=== PATIENT | female | born 1990 | race African-American/Black ===

== ENCOUNTER 2024-05-02 11:05 | Emergency (ER) | payer OTHER ==
[~2024-05-02] VITALS: Ht 172.7 cm; Wt 90.7 kg
[2024-05-02 11:35] VITALS: O2SAT 100
[2024-05-02 12:01] LABS: BASOPHILS % 0.2 % (0.0-2.0); EOSINOPHILS % 0.1 % (0.0-5.0); HEMATOCRIT. 39.8 % (36.0-48.0); HEMOGLOBIN. 13.4 g/dL (12.0-16.0); LYMPHOCYTES % 11.1 % (20.0-50.0); MEAN CORPUSCULAR HEMOGLOBIN 30.4 pg (28.0-32.0); MEAN CORPUSCULAR HGB CONC 33.7 g/dL (31.0-37.0); MEAN CORPUSCULAR VOLUME 90.1 fL (81.0-99.0); MONOCYTES % 2.4 % (2.0-8.0); NEUTROPHILS % 86.2 % (40.0-76.0); PLATELET 352 x1000/uL (130-400); RED BLOOD CELL COUNT 4.42 mill/uL (4.2-5.4); RED CELL DISTRIBUTION WIDTH 12.8 % (11.6-14.6); WHITE BLOOD COUNT 12.3 x1000/uL (4.5-11.0)
[2024-05-02 12:15] LABS: CHLORIDE 109 mEq/L (98-107); POTASSIUM 3.5 mEq/L (3.5-5.1); SODIUM 139 mEq/L (136-145)
[2024-05-02 12:16] LABS: CALCIUM 9.7 mg/dL (8.7-10.4); CARBON DIOXIDE 18 mEq/L (21-32)
[2024-05-02 12:21] LABS: GLUCOSE 115 mg/dL (70-105); UREA NITROGEN BLOOD 10 mg/dL (9-23)
[2024-05-02 12:23] LABS: ALANINE AMINOTRANSFERASE 25 IU/L (10-49); ALBUMIN 4.7 g/dL (3.2-4.8); ASPARTATE AMINOTRANSFERASE 27 IU/L (<34); BILIRUBIN DIRECT 0.2 mg/dL (<=3.0); BILIRUBIN TOTAL 0.8 mg/dL (0.1-1.0)
[2024-05-02 12:24] LABS: PROTEIN TOTAL 8.3 g/dL (6.0-8.3)
[2024-05-02] MEDS: SODIUM CHLORIDE 0.9% 1,000 ML IV ONE (12:30)
[2024-05-02] MEDS: ONDANSETRON HCL 4MG/2ML INJ IV STA (12:30)
[2024-05-02] MEDS: MORPHINE SULFATE 4 MG/ML INJ (FOR IV/IM USE) IV ONE (13:44)
[2024-05-02 13:51] LABS: CLARITY URINE CLEAR (CLEAR); COLOR URINE YELLOW (YELLOW); GLUCOSE URINE NEGATIVE (NEGATIVE); KETONES URINE 2+ (NEGATIVE); LEUKOCYTE ESTERASE URINE NEGATIVE (NEGATIVE); NITRITE URINE NEGATIVE (NEGATIVE); OCCULT BLOOD URINE NEGATIVE (NEGATIVE); PH URINE >=9.0 (4.5-8.0); PROTEIN URINE TRACE (NEGATIVE); SPECIFIC GRAVITY URINE 1.019 (1.005-1.030); UROBILINOGEN URINE 0.2 E.U./dL (0.2-1.0)
[2024-05-02 13:52] LABS: HCG SCREEN NEGATIVE
[2024-05-02 14:01] VITALS: BP 105/61; PULSE 106; RESP 18; TEMP 37.3; O2SAT 100
[2024-05-02 14:03] LABS: BACTERIA URINE 4+; RBC URINE 0-2 /hpf (0-2); SQUAMOUS EPITHELIAL CELL URINE 3+ /lpf (RARE/1+); YEAST URINE NONE SEEN
[2024-05-02] MEDS: MAGNESIUM/ALUMINUM HYDROXIDE/SIMETHICONE 30ML UDC PO ONE (14:49)
[2024-05-02] MEDS ORDERED: TOPUD MT (16:23)
[2024-05-02] MEDS ORDERED: ONDA4TAB50 MT (16:23)
[2024-05-02] MEDS ORDERED: PANT40SU MT (16:23)
[2024-05-02] MEDS ORDERED: MAG-55 MT (16:23)
== END 2024-05-02 16:55 | disposition home or self-care (01) ==
LOC: ER 11:05
DX: K52.9 Noninfective gastroenteritis and colitis, unspecified (principal); Z90.89 Acquired absence of other organs
CPT/HCPCS: 99285; 74176; 96374; 96361; 96375; 80076; 80048; 81003; 81025; 84703; 83690; 85025; 36415; J2405; J2270; J7030

== ENCOUNTER 2024-05-04 03:32 | Inpatient (IN) | payer OTHER ==
[~2024-05-04] VITALS: Ht 172.7 cm; Wt 99.3 kg
[~2024-05-04 03:32] MED LIST: MAG-55 MT; ONDA4TAB50 MT; PANT40SU MT; TOPUD MT
[2024-05-04 04:13] LABS: BASOPHILS % 0.5 % (0.0-2.0); EOSINOPHILS % 0.1 % (0.0-5.0); HEMATOCRIT. 41.2 % (36.0-48.0); HEMOGLOBIN. 14.4 g/dL (12.0-16.0); MEAN CORPUSCULAR HEMOGLOBIN 31.2 pg (28.0-32.0); MEAN CORPUSCULAR VOLUME 89.2 fL (81.0-99.0); MEAN PLATELET VOLUME 6.9 fl (7.4-10.4); NEUTROPHILS % 76.4 % (40.0-76.0); PLATELET 395 x1000/uL (130-400); RED BLOOD CELL COUNT 4.62 mill/uL (4.2-5.4); RED CELL DISTRIBUTION WIDTH 13.3 % (11.6-14.6); WHITE BLOOD COUNT 12.4 x1000/uL (4.5-11.0)
[2024-05-04 04:22] LABS: CHLORIDE 105 mEq/L (98-107); POTASSIUM 3.2 mEq/L (3.5-5.1); SODIUM 139 mEq/L (136-145)
[2024-05-04 04:23] LABS: CARBON DIOXIDE 19 mEq/L (21-32)
[2024-05-04 04:28] LABS: GLUCOSE 110 mg/dL (70-105); UREA NITROGEN BLOOD 11 mg/dL (9-23)
[2024-05-04 04:29] LABS: CLARITY URINE TURBID (CLEAR); COLOR URINE DARK YELLOW (YELLOW); GLUCOSE URINE NEGATIVE (NEGATIVE); KETONES URINE 3+ (NEGATIVE); LEUKOCYTE ESTERASE URINE TRACE (NEGATIVE); NITRITE URINE NEGATIVE (NEGATIVE); OCCULT BLOOD URINE TRACE (NEGATIVE); PROTEIN URINE 2+ (NEGATIVE); SPECIFIC GRAVITY URINE 1.035 (1.005-1.030)
[2024-05-04] MEDS: ONDANSETRON HCL 4MG/2ML INJ IM ONE (05:12)
[2024-05-04 06:23] LABS: SQUAMOUS EPITHELIAL CELL URINE 3+ /lpf (RARE/1+)
[2024-05-04 06:25] LABS: BACTERIA URINE TRACE; RBC URINE 0-2 /hpf (0-2)
[2024-05-04] MEDS: SODIUM CHLORIDE 0.9% 1,000 ML IV ONE (06:59)
[2024-05-04] MEDS: DICYCLOMINE HCL 10MG/ML 2ML VIAL IM ONE (07:20)
[2024-05-04] MEDS: KETOROLAC 30MG/ML VIAL IV ONE (08:37)
[2024-05-04] MEDS: FAMOTIDINE 20MG/2ML VIAL IV ONE (08:38)
[2024-05-04] MEDS: ONDANSETRON HCL 4MG/2ML INJ IV ONE (08:38)
[2024-05-04] MEDS ORDERED: SODIUM CHL 0.9% + KCL 20MEQ/L 1,000 ML IV SCH (10:30)
[2024-05-04] MEDS ORDERED: MAGNESIUM/ALUMINUM HYDROXIDE/SIMETHICONE 30ML UDC PO PRN (10:30)
[2024-05-04] MEDS ORDERED: ACETAMINOPHEN 325MG TABLET PO PRN (10:30)
[2024-05-04 10:55] LABS: THYROID STIMULATING HORMONE 0.91 uIU/mL (0.55-4.78)
[2024-05-04] MEDS: SODIUM CHL 0.9% + KCL 20MEQ/L 1,000 ML IV SCH (10:55)
[2024-05-04] MEDS: PANTOPRAZOLE SODIUM 40 MG/VIAL IV SCH (11:25)
[2024-05-04 12:00] VITALS: BP 129/93; PULSE 80; RESP 18; TEMP 36.2; O2SAT 100
[2024-05-04 15:16] VITALS: BP 132/92; PULSE 80; RESP 20; TEMP 37
[2024-05-04] MEDS: ONDANSETRON HCL 4MG/2ML INJ IV PRN (15:32)
[2024-05-04] MEDS: KETOROLAC 30MG/ML VIAL IV PRN (15:39)
[2024-05-04 16:00] VITALS: BP 118/82; PULSE 79; RESP 20; TEMP 36.4; O2SAT 100
[2024-05-04] MEDS: DICYCLOMINE HCL 10MG/ML 2ML VIAL IM NR (16:00)
[2024-05-04 20:00] VITALS: BP 143/90; PULSE 84; RESP 19; TEMP 35.4; O2SAT 100
[2024-05-05] VITALS: BP 141/84; PULSE 72; RESP 20; TEMP 37.2; O2SAT 100
[2024-05-05 07:27] LABS: CALCIUM 8.3 mg/dL (8.7-10.4); CARBON DIOXIDE 21 mEq/L (21-32); CHLORIDE 110 mEq/L (98-107); POTASSIUM 3.7 mEq/L (3.5-5.1); SODIUM 140 mEq/L (136-145)
[2024-05-05 07:32] LABS: CREATININE 0.8 mg/dL (0.6-1.0); GLUCOSE 88 mg/dL (70-105)
[2024-05-05 07:33] LABS: UREA NITROGEN BLOOD 9 mg/dL (9-23)
[2024-05-05 07:48] LABS: BASOPHILS % 0.2 % (0.0-2.0); EOSINOPHILS % 0.1 % (0.0-5.0); HEMATOCRIT. 38.6 % (36.0-48.0); HEMOGLOBIN. 13.1 g/dL (12.0-16.0); LYMPHOCYTES % 24.1 % (20.0-50.0); MEAN CORPUSCULAR HEMOGLOBIN 30.7 pg (28.0-32.0); MEAN CORPUSCULAR HGB CONC 33.9 g/dL (31.0-37.0); MEAN CORPUSCULAR VOLUME 90.6 fL (81.0-99.0); MEAN PLATELET VOLUME 7.1 fl (7.4-10.4); MONOCYTES % 6.8 % (2.0-8.0); NEUTROPHILS % 68.8 % (40.0-76.0); PLATELET 322 x1000/uL (130-400); RED BLOOD CELL COUNT 4.26 mill/uL (4.2-5.4); RED CELL DISTRIBUTION WIDTH 12.9 % (11.6-14.6); WHITE BLOOD COUNT 9.6 x1000/uL (4.5-11.0)
[2024-05-05 09:15] LABS: *AMPHETAMINES SCREEN URINE NEGATIVE (NEGATIVE); *BARBITURATES SCREEN URINE NEGATIVE (NEGATIVE); *BENZODIAZEPINES SCREEN URINE NEGATIVE (NEGATIVE); *COCAINE SCREEN URINE NEGATIVE (NEGATIVE); CANNABINOID URINE SCREEN NEGATIVE (NEGATIVE); ECSTASY MDMA SCREEN URINE NEGATIVE (NEGATIVE); METHADONE URINE SCREEN NEGATIVE (NEGATIVE); OPIATES URINE SCREEN NEGATIVE (NEGATIVE); PHENCYCLIDINE URINE SCREEN NEGATIVE (NEGATIVE)
[2024-05-05 12:00] VITALS: BP 129/90; PULSE 77; RESP 20; TEMP 36.4; O2SAT 98
[2024-05-05] MEDS: SUCRALFATE 1G TABLET PO SCH (12:58)
[2024-05-05 14:50] LABS: ALANINE AMINOTRANSFERASE 24 IU/L (10-49); ALBUMIN 3.9 g/dL (3.2-4.8); ASPARTATE AMINOTRANSFERASE 35 IU/L (<34); BILIRUBIN DIRECT 0.3 mg/dL (<=3.0); BILIRUBIN TOTAL 1.2 mg/dL (0.1-1.0); PROTEIN TOTAL 6.9 g/dL (6.0-8.3)
[2024-05-05 15:03] LABS: HEPATITIS B SURFACE ANTIGEN NEGATIVE (Negative)
[2024-05-05 15:23] LABS: HEPATITIS A AB IGM NEGATIVE (Negative)
[2024-05-05 15:24] LABS: HEPATITIS B CORE AB IGM NEGATIVE (Negative); HEPATITIS C AB NON REACTIVE (Neg) (Negative)
[2024-05-05 16:00] VITALS: BP 132/79; PULSE 87; RESP 18; TEMP 36.8; O2SAT 97
[2024-05-05 20:00] VITALS: BP 134/78; PULSE 85; RESP 19; TEMP 36.8; O2SAT 98
[2024-05-05] MEDS: POTASSIUM PHOSPHATE 20 MMOL in DEXT 5% WATER 250 ML IV NR (22:39)
[2024-05-06] VITALS: BP 129/68; PULSE 82; RESP 18; TEMP 37; O2SAT 98
[2024-05-06] MEDS: DIPHENHYDRAMINE 50MG/ML VIAL IV PRN (00:06)
[2024-05-06] MEDS: ACETAMINOPHEN 325MG TABLET PO PRN (00:06)
[2024-05-06] MEDS: POTASSIUM CHLORIDE IV SCH (03:00)
[2024-05-06] MEDS: SODIUM CHLORIDE 0.9% IV SCH (03:00)
[2024-05-06 04:00] VITALS: BP 122/67; PULSE 20; RESP 16; TEMP 36.8; O2SAT 97
[2024-05-06 07:15] LABS: CHLORIDE 106 mEq/L (98-107); POTASSIUM 3.6 mEq/L (3.5-5.1); SODIUM 137 mEq/L (136-145)
[2024-05-06 07:16] LABS: CALCIUM 8.6 mg/dL (8.7-10.4); CARBON DIOXIDE 20 mEq/L (21-32)
[2024-05-06 07:21] LABS: CREATININE 0.9 mg/dL (0.6-1.0); GLUCOSE 74 mg/dL (70-105)
[2024-05-06 07:22] LABS: ALANINE AMINOTRANSFERASE 25 IU/L (10-49); UREA NITROGEN BLOOD 7 mg/dL (9-23)
[2024-05-06 07:23] LABS: ALBUMIN 4.1 g/dL (3.2-4.8); ASPARTATE AMINOTRANSFERASE 30 IU/L (<34)
[2024-05-06 07:24] LABS: BILIRUBIN TOTAL 1.3 mg/dL (0.1-1.0); PROTEIN TOTAL 7.2 g/dL (6.0-8.3)
[2024-05-06 07:38] LABS: BASOPHILS % 0.4 % (0.0-2.0); EOSINOPHILS % 0.2 % (0.0-5.0); HEMATOCRIT. 38.7 % (36.0-48.0); HEMOGLOBIN. 13.4 g/dL (12.0-16.0); LYMPHOCYTES % 29.2 % (20.0-50.0); MEAN CORPUSCULAR HEMOGLOBIN 31.4 pg (28.0-32.0); MEAN CORPUSCULAR HGB CONC 34.7 g/dL (31.0-37.0); MEAN CORPUSCULAR VOLUME 90.4 fL (81.0-99.0); MONOCYTES % 6.7 % (2.0-8.0); NEUTROPHILS % 63.5 % (40.0-76.0); PLATELET 315 x1000/uL (130-400); RED BLOOD CELL COUNT 4.28 mill/uL (4.2-5.4); RED CELL DISTRIBUTION WIDTH 12.8 % (11.6-14.6); WHITE BLOOD COUNT 8.5 x1000/uL (4.5-11.0)
[2024-05-06 08:00] VITALS: BP 122/89; PULSE 64; RESP 19; TEMP 36.4; O2SAT 100
[2024-05-06] MEDS: METOCLOPRAMIDE HCL 10MG/2ML VIAL IV PRN (08:26)
[2024-05-06] MEDS: MORPHINE SULFATE 4 MG/ML INJ (FOR IV/IM USE) IV PRN (08:29)
[2024-05-06 12:00] VITALS: BP 119/70; PULSE 70; RESP 18; TEMP 36.3; O2SAT 99
[2024-05-06 16:00] VITALS: BP 123/86; PULSE 66; RESP 18; TEMP 36.3; O2SAT 99
[2024-05-06 20:00] VITALS: BP 134/83; PULSE 78; RESP 16; TEMP 37.7; O2SAT 100
[2024-05-06] MEDS: ALPRAZOLAM 0.5 MG TABLET PO NR (22:16)
[2024-05-07] VITALS: BP 130/77; PULSE 79; RESP 16; TEMP 37.1; O2SAT 99
[2024-05-07] MEDS ORDERED: POTASSIUM CHLORIDE IV SCH (00:48)
[2024-05-07] MEDS ORDERED: SODIUM CHLORIDE 0.9% IV SCH (00:48)
[2024-05-07] MEDS ORDERED: SODIUM CHL 0.9% + KCL 20MEQ/L 1,000 ML IV SCH (01:00)
[2024-05-07] MEDS: SODIUM CHL 0.9% + KCL 20MEQ/L 1,000 ML IV SCH (01:07)
[2024-05-07 04:00] VITALS: BP 121/81; PULSE 78; RESP 18; TEMP 36.3; O2SAT 100
[2024-05-07 08:00] VITALS: BP 134/92; PULSE 77; RESP 20; TEMP 36.2; O2SAT 97
[2024-05-07] MEDS ORDERED: NALOXONE HCL 0.4MG/ML VIAL IV PRN (08:00)
[2024-05-07] MEDS: SODIUM CHLORIDE 0.9% IV SCH (08:00)
[2024-05-07] MEDS: POTASSIUM CHLORIDE IV SCH (08:00)
[2024-05-07 12:00] VITALS: BP 143/87; PULSE 77; RESP 19; TEMP 36.1; O2SAT 97
[2024-05-07 16:00] VITALS: BP 125/94; PULSE 86; RESP 18; TEMP 36.4; O2SAT 98
[2024-05-07] MEDS ORDERED: ALPRAZOLAM 0.5 MG TABLET PO PRN (18:00)
[2024-05-07 18:49] VITALS: BP 125/94; PULSE 86; TEMP 97.5; O2SAT 98
== END 2024-05-07 19:36 | disposition home or self-care (01) | DRG 392 ==
LOC: ER 03:47 → 6EST 08:12 → EDBEDREQ 08:17
PROVIDERS: ADMIT Internal Medicine; ATTEND Internal Medicine
DX: K52.9 Noninfective gastroenteritis and colitis, unspecified (principal); K21.9 Gastro-esophageal reflux disease without esophagitis; E87.6 Hypokalemia; K27.9 Peptic ulcer, site unspecified, unspecified as acute or chronic, without hemorrhage or perforation; E80.6 Other disorders of bilirubin metabolism; F41.9 Anxiety disorder, unspecified; Z79.899 Other long term (current) drug therapy
CPT/HCPCS: 36415; 76700; 80048; 80053; 80076; 80305; 81003; 83036; 83735; 84100; 84443; 85025; 86705; 86709; 87340; 99285; J0500; J1200; J1885; J2270; J2405; J2470; J2765; J3480; J3490; J7030; J7060